=== PATIENT | male | born 1975 | race Caucasian/White ===

== ENCOUNTER 2016-09-09 21:59 | Emergency (ER) | payer BC ==
[2016-09-09 22:19] VITALS: BP 136/88
--- NOTE | 2016-09-10 01:37 | ED ---
Upper Extremity Pain - HPI Summary HPI Summary: Patient presents to ED with CC of right little finger injury s/p beam falling onto the finger earlier this afternoon. Nail avulsed. Concerned for break or bleeding. Bleeding was moderate but has not dissipated on arrival to ED. Otherwise healthy and takes no medications. Pain is 8/10, throbbing and discretely located over the injury with no radiation. - History of Current Complaint Chief Complaint: EDExtremityUpper Stated Complaint: RT PINKY INJURY Time Seen by Provider: 09/10/16 00:56 Hx Obtained From: Patient Mechanism Of Injury: Direct Blow Onset/Duration: Started Hours Ago Timing: Constant Severity Initially: Moderate Severity Currently: Moderate Pain Location: Finger Character: Throbbing Aggravating Factor(s): Nothing Alleviating Factor(s): Nothing Associated Signs & Symptoms: Positive: Swelling - Allergies/Home Medications Allergies/Adverse Reactions: Allergies Allergy/AdvReac Type Severity Reaction Status Date / Time No Known Allergies Allergy Verified 09/09/16 22:17 PMH/Surg Hx/FS Hx/Imm Hx Previously Healthy: Yes - Immunization History Hx Pertussis Vaccination: No Immunizations Up to Date: Unable to Obtain/Confirm Infectious Disease History: Denies: Traveled Outside the [place] in Last 30 Days - Social History Occupation: Employed Full-time Lives: With Family Alcohol Use: None Hx Substance Use: No Substance Use Type: Reports: None Smoking Status (MU): Unknown if Ever Smoked Review of Systems Constitutional: Negative Eyes: Negative Respiratory: Negative Positive: no symptoms reported, see HPI Positive: Arthralgia Neurological: Negative Psychological: Normal All Other Systems Reviewed And Are Negative: Yes Physical Exam Triage Information Reviewed: Yes Vital Signs On Initial Exam: Initial Vitals Temp Pulse Resp BP Pulse Ox 97.8 F 66 16 136/88 98 09/09/16 22:17 09/09/16 22:17 09/09/16 22:17 09/09/16 22:17 09/09/16 22:17 Completion Of Physical Exam Limited Due To: Dementia Appearance: Positive: Well-Appearing, Well-Nourished Skin: Positive: Warm, Skin Color Reflects Adequate Perfusion, Other - nail avulsed Eyes: Positive: Normal, EOMI, SONYA Neck: Positive: Supple, Nontender, No Lymphadenopathy Respiratory/Lung Sounds: Positive: Clear to Auscultation, Breath Sounds Present Cardiovascular: Positive: Normal, RRR Musculoskeletal: Positive: Pain @ - right pinky finger pain with nail avulsed Neurological: Positive: Normal, Sensory/Motor Intact Psychiatric: Positive: Normal AVPU Assessment: Alert Diagnostics - Vital Signs Vital Signs Temp Pulse Resp BP Pulse Ox 09/09/16 22:17 97.8 F 66 16 136/88 98 - Laboratory Lab Statement: Any lab studies that have been ordered have been reviewed, and results considered in the medical decision making process. Course/Dx - Course Course Of Treatment: Xray negative. Nail avulsed. Patient prefers to not have nail removed and wait for it to fall off. Provider wrapped with gauze and patient is OK for discharge. - Diagnoses Differential Diagnosis/HQI/PQRI: Positive: Contusion, Hematoma, Strain, Sprain Provider Diagnoses: Nail avulsion, finger Discharge - Discharge Plan Condition: Stable Disposition: HOME Patient Education Materials: Nail Avulsion (ED) Referrals: Non Staff,Doctor [Primary Care Provider] - Additional Instructions: Follow up as needed If you develop redness, streaks of red around the wound, swelling, abnormal drainage or you develop a fever - you need to come back to the ED right away.
--- NOTE | 2016-09-10 07:22 | RAD ---
INDICATION: Right fifth digit injury COMPARISON: None TECHNIQUE: AP, lateral, and oblique views were obtained. FINDINGS: There is a laceration about the distal phalanx. There is no foreign body. There is no underlying fracture. The joint spaces are maintained. IMPRESSION: NO FRACTURE OR FOREIGN BODY. LACERATION.
== END 2016-09-10 01:16 | disposition home or self-care (01) ==
LOC: ED 21:59
DX: S61.306A Unspecified open wound of right little finger with damage to nail, initial encounter (principal); W20.8XXA Other cause of strike by thrown, projected or falling object, initial encounter; Y93.9 Activity, unspecified; Y92.9 Unspecified place or not applicable
CPT/HCPCS: 73140; 99281